=== PATIENT | male | born 2000 | race Caucasian/White ===

== ENCOUNTER 2024-09-01 23:28 | Emergency (ER) | payer OTHER ==
[2024-09-01] MEDS ORDERED: methylPREDNISolone Sod Succ/PF 125 MG/2 ML VIAL ONE (23:52)
[2024-09-01] MEDS ORDERED: Tranexamic Acid 1,000 MG/10 ML VIAL ONE (23:52)
[2024-09-01] MEDS ORDERED: EPINEPHrine 1 MG/ML VIAL ONE (23:52)
== END 2024-09-02 01:54 | disposition home or self-care (01) ==
LOC: CSHERS 23:28
DX: T78.3XXA Angioneurotic edema, initial encounter (principal); Z55.0 Illiteracy and low-level literacy
CPT/HCPCS: 96372; 96374; 96375; J0171; J2919